=== PATIENT | male | born 1950 | race Caucasian/White ===

== ENCOUNTER 2017-01-16 09:34 | Inpatient (IN) | payer OTHER ==
[~2017-01-16] VITALS: Ht 177.8 cm; Wt 123.0 kg
[2017-01-16] VITALS (44 sets, daily range): BP systolic 101–168; BP diastolic 48–121
--- NOTE | ~2017-01-16 | HC ---
[facility] [place] [address] CONSULTATION Name: LYNN MANNING Room #: 244-P [facility] IN M.R.#: [id number] Admission: 01/16/17 Attend Phys: Mario Daigle MD Discharge: Date of : 48 Report #: [id number] THIS REPORT FOR: //name// CC: Jose Daigle DATE OF SERVICE: 01/16/2017 HISTORY OF PRESENT ILLNESS: A 66-year-old white male previously known to me who was admitted with left-sided weakness, upper extremity greater than lower extremity. He is unable to undergo an MRI scan as he has a prior spinal cord stimulator. He did undergo TPA at [facility] and he has been transferred here for further evaluation. He has been seen by Neurology. CT scan does show a posterior right frontal lobe acute recent area of ischemia. He has weakness to that left side. We are seeing him in rehabilitation medicine consultation. PAST MEDICAL HISTORY: Includes a complex history with exploratory laparotomy, cholecystectomy, open colostomy reversal, 05/2015. History of chronic kidney disease, diabetes mellitus type 2, obesity, obstructive sleep apnea. He did have a prior acute inpatient rehabilitation stay from 06/27/2015 to 07/04/2015. PAST SURGICAL HISTORY: Delineated above. MEDICATIONS: Please see the full medication listing. ALLERGIES: PLAVIX CAUSES ITCHING. SOCIAL HISTORY: , lives with his , house, 2 steps in, can stay on one floor. He was ambulatory without gait aids, would only use a cane outside. is retired and can assist. FAMILY HISTORY: Positive for leukemia, hypertension on mother's side; coronary artery disease on father's side. REVIEW OF SYSTEMS: No current complaints of chest pain, shortness of breath or abdominal discomfort. Denies any swallowing issues. Denies any bowel or bladder problems. He has left upper extremity weakness and numbness, more than left lower extremity. PHYSICAL EXAMINATION: GENERAL: A right-handed 66-year-old white male in no obvious distress. VITAL SIGNS: Temperature 37.3, pulse 75, respirations 12, blood pressure 133/69. The patient is alert, pleasant, oriented. HEENT: Appeared to be benign. NEUROLOGIC: Cranial nerves are grossly intact. Facies are symmetric. No obvious visual field neglect consultation. He has functional range of motion of [address] [address] CONSULTATION Name: LYNN MANNING Room #: 244-P [facility] IN M.R.#: [id number] Admission: 01/16/17 Attend Phys: Mario Daigle MD Discharge: Date of : 48 Report #: [id number] the right upper and right lower extremity without focal weakness. DTRs are trace to 1. In his left upper extremity, he only has a grade trace left shoulder flexion, abduction, adduction, elbow flexion, extension is only a trace to 2-. No movement of the wrist, thumb and fingers. Tone is decreased. Left lower extremity strength appears better, probably a grade 3+/5. DTRs are 1. There is no clonus. Sensation appeared reasonably intact to simultaneous stimulation. He has bilateral knee incisions from prior total knee replacements, which are well healed. Functionally, he had left-sided weakness, moderate assist with standing, he has done some gnue-ve-wnev 3 steps with assist. ASSESSMENT: A 66-year-old right-handed white male with the following problem list: 1. Posterior right frontal lobe cerebrovascular accident. 2. Left upper extremity greater than left lower extremity paresis with left upper extremity, more of a dense paresis. 3. Left hemisensory deficits, although he did reasonably well with simultaneous stimulation. 4. Functional mobility and ADL deficits. 5. Status post colostomy reversal. 6. Chronic kidney disease. 7. Diabetes mellitus type 2. 8. Obesity. 9. Obstructive sleep apnea. PLAN: Therapies are continuing. He is a candidate for an acute in-hospital inpatient rehabilitation stay. From a preadmission screening perspective: 1. Prior level of function is well delineated above. 2. Expect level of improvement would be for the patient to become modified independent with transfers, mobility and ADLs, so that he can hopefully return back to his prior living situation. Would anticipate length of stay of probably at least 7-10 days, potentially longer if needed. 3. Evaluation of the patient's risk for clinical complications. He has the above noted comorbidities. 4. Condition that caused the need for rehabilitation would be the CVA. 5. Treatments needed would include PT and OT 1 and 1-1/2 hours per day each five days a week throughout the duration of the acute inpatient rehabilitation stay. I am uncertain if he warrant speech therapy yet or not. 6. Anticipated discharge destination would be back to the home setting. 7. Anticipated post-discharge treatments would include likely either home healthcare or outpatient depending upon his progress. By: [id number] Rick Vickers MD /ELDER
--- NOTE | ~2017-01-16 | 2DMMODE ---
[facility] [address] [place] [address] 2 D/M-MODE ECHOCARDIOGRAM Name: LYNN MANNING Room #: 248-P ADM IN M.R.#: [id number] Admission: 01/16/17 Attend Phys: Mario Daigle, Discharge: Date of : 48 Date of Service: 01/17/17 [facility] Report #: [id number] THIS REPORT FOR: //name// APPROVED REPORT Study performed: 01/17/2017 14:26:33 EXAM: Comprehensive 2D, Doppler, and color-flow Echocardiogram Patient Location: ICU Room #: 248 Status: routine BSA: 2.39 HR: 97 bpm BP: 133/69 mmHg Other Information Study Quality: Fair/poor Technically limited study due to body habitus, limited mobility. Indications CVA. Hx: CAD, stent Echo Enhancing Agent Indication: Endocardial border delineation Agent(s) / Amount(s) Used: Optison 3 cc 2D Dimensions LVEF(%): 56.04 (>50%) IVSd: 11.56 (7-11mm) LVOT Diam: 21.81 (18-24mm) LVDd: 52.95 mm PWd: 11.00 (7-11mm) LVDs: 37.33 (25-40mm) Aortic Root: 37.07 mm Layton's LVEF: 56.04 % Volumes Left Atrial Volume (Systole) Single Plane 4CH: 51.18 mL Single Plane 2CH: 63.60 mL LA ESV Index: 26.00 mL/m2 Aortic Valve AoV Peak Robles.: 1.47 m/s AO Peak Gr.: 8.69 mmHg LVOT Max P.28 mmHg LVOT Max V: 1.15 m/s [facility] [address] [address] 2 D/M-MODE ECHOCARDIOGRAM Name: NIGELLYNN Room #: 248-P ADM IN M.R.#: [id number] Admission: 01/16/17 Attend Phys: Mario Daigle, Discharge: Date of : 48 Date of Service: 01/17/17 1600 Report #: [id number] Vmax: 2.91 cm2 Mitral Valve E/A Ratio: 1.1 MV Decel. Time: 230.25 ms MV E Max Robles.: 1.19 m/s MV A Robles.: 1.04 m/s MV PHT: 66.77 ms IVRT: 86.51 ms Pulmonary Valve PV Peak Robles.: 1.14 m/s PV Peak Gr.: 5.17 mmHg Tricuspid Valve RAP Estimate: 5.00 mmHg Left Ventricle The left ventricle is normal size. Regional wall motion is grossly normal.Poor endocardial definition.Contrast was utilized Mild concentric left ventricular hypertrophy. Left ventricular systolic function is normal. LVEF is 60%. Moderate diastolic dysfunction is present (pseudonormal filling). Right Ventricle Right ventricle is poorly visualized. Atria The left atrium size is normal. Injection of bubbles was suboptimal and non-conclusive. Right atrium is poorly visualized. Aortic Valve The aortic valve is normal in structure. No aortic regurgitation is present. There is no aortic valvular stenosis. Mitral Valve The mitral valve is normal in structure. There is mitral annular calcification. There is no mitral valve regurgitation noted. No evidence of mitral valve stenosis. Tricuspid Valve Tricuspid valve is poorly visualized. Unable to assess pulmonary pressures. Pulmonic Valve Pulmonic valve is not well visualized. [facility] [address] [place] [address] 2 D/M-MODE ECHOCARDIOGRAM Name: LYNN MNANING Room #: 248-P ADM IN M.R.#: [id number] Admission: 01/16/17 Attend Phys: Mario Daigle, Discharge: Date of : 48 Date of Service: 01/17/17 1600 Report #: [id number] Great Vessels The aortic root is normal in size. Ascending aorta is not well visualized. IVC is normal in size and collapses >50% with inspiration. <Conclusion> Mild concentric left ventricular hypertrophy. LVEF is 60%. Regional wall motion is grossly normal. There is no aortic valvular stenosis. No aortic regurgitation is present. There is no mitral valve regurgitation noted. <ELECTRONICALLY SIGNED> By: Bubba Perera MD, FACC 01/17/17 1600 1600 99 Bubba Perera MD, FAC /INF
[~2017-01-16 09:34] MED LIST: ACIDOPHILUS LA1 EACH PO; AFRIN15 ML NASAL; AFRIN15 ML NS; ALBUTEROL2.5 MG/0.5 INH; ALLOPURINOL 10100 M1 PO; ASPIR 8181 MG PO; ASPIRIN EC81 M1 PO; BLACK CHERRY PO; BYETTA SQ; CALCIUM 600 +1 EAC1 PO; CARAFATE 1 GM TA1 G1 PO; CARVEDILOL25 MG PO; CELEBREX400 MG PO; CINNAMON500 MG PO; CIPRO500 MG PO; CIPROFLOXA400 MG/202 IVPB; CLONIDINE HCL0.1 MG PO; CLONIDINE0.1 PO; COLACE100 MG PO; COLCHICINE0.6 MG PO; COMBIGAN EYE DR10 ML OP; COREG PO; COREG25 MG PO; CRESTOR10 MG PO; DEPO-TESTO100 MG/1 M IM; DIPHENHYDRAM50 MG/M2 IV PUSH; EFFIENT10 MG PO; ENALAPRIL MALEA20 MG PO; ENOXAPARIN30 MG/0.1 SUBQ; FENTANYL PA50 MCG/HR TRANSDERM; FEOSOL325 M1 PO; FISH OIL 1,001000 M1 PO; FISH OIL SOFTG1 EAC2 PO; FISH OIL SOFTG1 EACH PO; FLAGYL500 MG PO; FLONASE 0.05%50 MCG NASAL; GLUCOPHAGE1000 MG PO; GLUCOSE GEL38 GM; GREEN TEA1 EACH PO; HEPARIN 50500 UNIT/5 IV; HEPARIN SO1000 UNIT/ IV PUSH; LASIX 40 MG TAB40 M2 PO; LASIX 40 MG TAB40 MG PO; LEVEMIR SUBQ; LIPID EMULSION; MAGNESIUM400 M1 PO; MEROPENEM500 MG IV; METFORMIN HCL500 MG PO; METOLAZONE 2.52.5 MG PO; METOPROLOL5 MG/5 M2 IV PUSH; MINIPRIN81 MG PO; MSL20MG/ML; MUCINEX600 MG PO; NAPROSYN500 MG PO; NASONEX17 GM NS; NITROSTAT0.4 MG SL; NORCO 5-325 TA1 EACH PO; NORVASC10 MG PO; NORVASC5 MG PO; NOVOLOG100 UNIT/1 SUBQ; OMEGA-31000 MG PO; ONDANSETRON HCL4 M2; PERIDEX15 ML MM; PHENERGAN25 MG/1 M1 IV PUSH; PLAVIX 75 MG TA75 M1 PO; POTASSIUM20 PO; PROTONIX 440 MG/VIA1 IV; PROTONIX40 M1 PO; PROTONIX40 M4 PO; REGLAN 10 MG TA10 MG; REGLAN10 MG PO; TIMOLOL MA0.5 %/5 M2 OPHTHALMIC; TPN ELECTROLYTE20 M1 IV; TRADJENTA5 MG PO; TYLENOL325 MG PO; VASOTEC10 MG PO; VIAGRA100 MG PO; VICTOZA0.6 MG/0.1 SUBQ; WELLBUTRIN SR150 MG PO; XANAX 0.5 MG0.5 MG PO; ZYRTEC10 M2 PO
[2017-01-16 14:46] LABS: CHOLESTEROL 155 mg/dL (<200); HDL CHOLESTEROL 33 mg/dL (>40); LDL CHOLESTEROL 76 mg/dL (<100); TC:HDL 4.7 Ratio (Not establshd); TRIGLYCERIDE 231 mg/dL (<150); VLDL 46 mg/dL (<40)
[2017-01-16 15:49] LABS: TSH 1.633 uIU/mL (0.358-3.740)
[2017-01-17] VITALS (23 sets, daily range): BP systolic 120–203; BP diastolic 58–190
[2017-01-17 03:10] LABS: GLYCOHEMOGLOBIN (HGB A1C) 7.3 % (4.8-5.6)
[2017-01-18] VITALS (7 sets, daily range): BP systolic 109–170; BP diastolic 69–88
[2017-01-18] MEDS ORDERED: FISH OIL 1,0001 EAC5 PO (07:42)
== END 2017-01-18 10:10 | DRG 65 ==
LOC: ICU 09:34
PROVIDERS: Psychiatry & Neurology Neurology
DX: I63.9 Cerebral infarction, unspecified (principal); Z92.82 Status post administration of tPA (rtPA) in a different facility within the last 24 hours prior to admission to current facility; N18.9 Chronic kidney disease, unspecified; G47.33 Obstructive sleep apnea (adult) (pediatric); E11.22 Type 2 diabetes mellitus with diabetic chronic kidney disease; E66.9 Obesity, unspecified; F32.9 Major depressive disorder, single episode, unspecified; G43.909 Migraine, unspecified, not intractable, without status migrainosus; G89.29 Other chronic pain; M54.5 Low back pain; I25.10 Atherosclerotic heart disease of native coronary artery without angina pectoris; F41.9 Anxiety disorder, unspecified; E78.5 Hyperlipidemia, unspecified; Z90.49 Acquired absence of other specified parts of digestive tract; Z93.3 Colostomy status; Z68.38 Body mass index [BMI] 38.0-38.9, adult; Z88.8 Allergy status to other drugs, medicaments and biological substances; Z80.6 Family history of leukemia; Z82.49 Family history of ischemic heart disease and other diseases of the circulatory system; Z79.82 Long term (current) use of aspirin; Z79.899 Other long term (current) drug therapy; I25.2 Old myocardial infarction; Z87.891 Personal history of nicotine dependence
CPT/HCPCS: 10078

== ENCOUNTER 2017-01-18 08:46 | Inpatient (IN) | payer OTHER ==
[~2017-01-18] VITALS: Ht 152.4 cm; Wt 123.8 kg
--- NOTE | ~2017-01-18 | PLAN ---
[facility] [place] [address] REHAB UNIT PLAN OF CARE Name: LYNN MANNING Room #: 511-P ADM IN M.R.#: [id number] Admission: 01/18/17 Attend Phys: Rick Vickers MD Discharge: Date of : 49 Report #: [id number] THIS REPORT FOR: //name// CC: Jose Vickers DATE OF SERVICE: 01/21/2017 SUBJECTIVE: The patient is seen back today in followup. He is doing better. He had an injection of his left elbow that he definitely feels helps his pain. He is moving thee left arm better and now his proximal strength at least a grade 3+/5 and distally it is more of a 4- to 4/5. He does have evidence of pipso-rr-oyduar pinch of the left hand. Temperature is 98.2, pulse 71, respirations 20, blood pressure 159/90. Functionally, he is transferring with contact guard and is ambulating 200 feet contact guard without a device. ASSESSMENT: 1. Posterior right frontal lobe cerebrovascular accident. 2. Left upper extremity greater than left lower extremity paresis with improvement of left arm and left leg movement. 3. Left hemisensory deficits, which appeared to be improving. 4. Functional mobility and ADL deficits. 5. Status post colostomy reversal. 6. Chronic kidney disease. 7. Diabetes mellitus type 2. 8. Obesity. 9. Obstructive sleep apnea. PLAN: The overall plan of care is based on the preadmission screen, post-admission physician evaluation and information garnered from therapy assessments. 1. Estimated length of stay is probably fairly short 7-10 days, pending progress. 2. Medical prognosis is reasonably good. 3. Anticipated interventions includes the interdisciplinary acute inpatient rehabilitation program with PT and OT working with him. I am uncertain if speech therapy is going to be warranted or not. Rehab nursing is assisting regarding medication management, skin care prophylaxis, bowel and bladder issues and nursing education. The [employer] sales consultant physicians are involved. 4. Anticipated functional outcomes would be for the patient can be modified independent potentially without gait aids with independence in mobility and ADLs. 5. Discharge destination will be back home with his . 6. Expected therapy by discipline includes PT and OT 1 and 1-1/2 hours per day each five days a week throughout the duration of the acute inpatient rehabilitation stay. [address] [address] REHAB UNIT PLAN OF CARE Name: LYNN MANNING Room #: 511-P [facility] IN M.R.#: [id number] Admission: 01/18/17 Attend Phys: Rick Vickers MD Discharge: Date of : 49 Report #: [id number] 7. I see that speech therapy is consulted and will probably have them see him at least 1/2-1 hour per day initially, although I am uncertain if they are going to follow throughout his rehabilitation stay. The total for PT and OT and Speech would be at least 3 hours per day, 5 days a week throughout the duration of the acute inpatient rehabilitation stay. <ELECTRONICALLY SIGNED> By: Rick Vickers MD 01/23/17 1006 [id number] Rick Vickers MD /[facility]
--- NOTE | ~2017-01-18 | HC ---
[facility] [place] [address] CONSULTATION Name: LYNN MANNING Room #: 511-P [facility] IN M.R.#: [id number] Admission: 01/18/17 Attend Phys: Rick Vickers MD Discharge: 01/24/17 Date of : 48 Report #: [id number] THIS REPORT FOR: //name// CC: Jose Ahmadi Rick Vickers DATE OF SERVICE: 01/19/2017 NEUROBEHAVIORAL STATUS EXAM ATTENDING PHYSICIAN: Rick Vickers MD PIZZAMAKER: José Luis Cilfton, PhD CLINICAL PRESENTATION: The patient is a 66-year-old male admitted to the [facility] rehabilitation unit for a comprehensive inpatient rehabilitation program to improve functional mobility, activities of daily living and self-care and mental status secondary to a posterior right frontal lobe CVA. He reported to have been at home with his when he noticed the weakness in the left upper extremity. His diagnoses include left hemisensory deficits, functional mobility and activities of daily living deficits, status post colostomy reversible, chronic kidney disease, diabetes mellitus type 2, obesity, and obstructive sleep apnea. The patient had a severe medical event in October 2014, in which he had a colon mass and underwent a resection. The patient became septic and developed rebuilding of the stomach and aspects of his colon. A complete description of his medical condition and history can be found in his medical record. Neuropsychological consultation was requested to provide assistance in the assessment of cognitive and emotional status and to provide recommendations and services. Prior to this most recent event, he was living independently with his in their home. 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 He is a high school graduate. The patient has one son. His is supportive and social support is described as very good. The patient had 2 step siblings and 6 biological siblings. There is no reported family history of mental disorder. TECHNIQUES UTILIZED: Clinical interview, review of medical records, staff consultation and behavioral observation, family interview-, mini mental status exam 2 standard version, calibrated ideational fluency assessment (letter and category fluency) and clock drawing. EXAMINATION FINDINGS: The patient was alert and cooperative with the [address] [address] CONSULTATION Name: LYNN MANNING Room #: 511-P DIS IN M.R.#: [id number] Admission: 01/18/17 Attend Phys: Rick Vickers MD Discharge: 01/24/17 Date of : 49 Report #: [id number] assessment. He accurately described the events surrounding his hospitalization. There is no amnesia suggested. The patient had TPA at the initial admission. Prior to this stroke, he was independent with instrumental and basic activities of daily living. He does not report difficulty with memory, word finding, or sleep. Appetite is improving. The patient does acknowledge subjective anxiety in regard to his medical condition and well being. There is no history reported of alcohol or drug use. His performance on the MMSE 2 brief version, he is in the moderate range of impairment with a raw score 12 of 16 and a T score of 27. Performance on the brief version was at the 1st percentile. Performance on the MMSE 2 standard version was a raw score of 22 and a T score of 29, which is at the 2nd percentile. The patient was 3/3 for initial registration, 4/5 for orientation to time, 3/[address] and 2/3 for immediate recall of 3 items after a brief time delay and distraction. His performance on the standard version of the MMSE 2 indicates 1/5 for serial 7's. He was able to name common objects and provide adequate repetition, auditory comprehension, reading and following a single command, being able to write a sentence and copy a simple geometric design. The patient had some difficulty with clock drawing in regard to placement of the hands at the designated time of 10 after 11. Letter fluency was in the average range with a raw score of 25 and a T score of 50. Category fluency was within normal limits with a raw score 35 and a T score of 43. Total fluency was a raw score of 60, T score of 47 and percentile rank of 38. The patient is showing subtle to mild difficulty with sustained attention and concentration. He reports increased anxiety as a result of having had the stroke. 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 Adjustment disorder with anxious mood. RECOMMENDATIONS: The patient will continue to benefit from educational information in regard to deficits in functioning as a result of the stroke. Compensatory strategies for attention/concentration, planning and problem solving will be of helpful. A more thorough neuropsych assessment will be of benefit upon his return home. Assistance in the development of compensatory [address] [address] CONSULTATION Name: LYNN MANNING Room #: 511-P DIS IN M.R.#: [id number] Admission: 01/18/17 Attend Phys: iRck Vickers MD Discharge: 01/24/17 Date of : 49 Report #: [id number] strategies for inattentiveness and variability in concentration along with immediate recall will be helpful. Thank you very much for allowing me to provide the consultation on this patient. <ELECTRONICALLY SIGNED> By: José Luis Clifton, PhD 01/27/17 1508 1416 1530 José Luis Clifton, PhD /nt
--- NOTE | ~2017-01-18 | H ---
[facility] [place] [address] HISTORY AND PHYSICAL Name: LYNN MANNING Room #: 511-P ADM IN M.R.#: [id number] Admission: 01/18/17 Attend Phys: Rick Vickers MD Discharge: Date of : 49 Report #: [id number] THIS REPORT FOR: //name// CC: Jose Vickers DATE OF SERVICE: 01/18/2017 HISTORY AND PHYSICAL/POST-ADMISSION PHYSICIAN EVALUATION HISTORY OF PRESENT ILLNESS: The patient is a 66-year-old white male previously known to me who was originally admitted to [facility] with left-sided weakness, upper extremity greater than lower extremity. He was unable to undergo an MRI scan as he has a prior spinal cord stimulator. He did undergo TPA at [facility] and was transferred to [place] for further evaluation. He was seen by Neurology. CT scan showed a posterior right frontal lobe acute recent area of ischemia. He has significant weakness of the left side. He has now been admitted for acute in-hospital inpatient rehabilitation. PAST MEDICAL HISTORY: Prior exploratory laparotomy, cholecystectomy, open colostomy reversible 06/14, history of chronic kidney disease, diabetes mellitus type 2, obesity, obstructive sleep apnea. PAST SURGICAL HISTORY: Delineated above. MEDICATIONS: Please see the full medication listing. Each of these was intubated individually reconciled upon the patient's admission and include vitamins, herbal supplements. ALLERGIES: PLAVIX CAUSES CHANGING. SOCIAL HISTORY: , lives with his , house, 2 steps in, can stay on one floor, was premorbidly ambulatory without gait aids, but only used a cane outside. is retired and can assist. FAMILY HISTORY: Positive for leukemia, hypertension on mother's side, coronary artery disease on father's side. REVIEW OF SYSTEMS: No complaints of chest pain, shortness of breath, abdominal discomfort. No swallowing issues. No focal extremity pain complaints. Notes he is moving the left upper extremity a little bit better. PHYSICAL EXAMINATION: GENERAL: A 66-year-old white male in no obvious distress. VITAL SIGNS: Last recorded temperature 97.2, pulse 80, respirations 16, blood [facility] [address] [place] [address] HISTORY AND PHYSICAL Name: LYNN MANNING Room #: 511-P [facility] IN M.R.#: [id number] Admission: 01/18/17 Attend Phys: Rick Vickers MD Discharge: Date of : 48 Report #: [id number] pressure 158/86. NEUROLOGIC: The patient is alert, pleasant. HEENT: Appeared to be benign. NEUROLOGIC: Cranial nerves are grossly intact. Facies are symmetric. I could not detect any obvious visual field neglect to confrontation. CHEST: Sounded clear to auscultation. CARDIOVASCULAR: Regular rate and rhythm. ABDOMEN: Bowel sounds positive, nontender. GENITOURINARY AND RECTAL: Deferred. EXTREMITIES: He has functional range of motion of the right upper and right lower extremity without focal weakness. DTRs are trace to 1. Left upper extremity, he is now able to abduct and forward flex that left arm a grade 3-, elbow flexion and extension at 3-. He does have a very limited movement of that left arm, no movement of the fingers per se. In the left lower extremity; strength is better, probably a 3+/5. DTRs are 1. There is some decreased tone of the left upper extremity, but only mild. He has bilateral knee incisions from prior total knee replacements which are well healed. There is no calf swelling. No distal lower extremity edema. He is needing mod assist with standing and some short distance. Attempts at ambulation, taking a couple of steps. ASSESSMENT: A 66-year-old right-handed white male with the following problem list: 1. Posterior right frontal lobe cerebrovascular accident. 2. Left upper extremity greater than left lower extremity paresis with left upper extremity morbid dense paresis. 3. Left hemisensory deficits. 4. Functional mobility and ADL deficits. 5. Status post colostomy reversible. 6. Chronic kidney disease. 7. Diabetes mellitus type 2. 8. Obesity. 9. Obstructive sleep apnea. PLAN: The patient is admitted for acute in-hospital inpatient rehabilitation. From a postadmission physician evaluation perspective, there are no relevant changes since the preadmission screening. Please see the above review of prior and current medical and functional conditions and comorbidities. Please see the patient's previous and current functional status. As far as risk of complications, see the above noted list of comorbidities. Initial plan of care involves the interdisciplinary acute inpatient rehabilitation program with the goal of maximizing the patient's functional independence, so that he can hopefully return back to his prior living situation. Measurable functional goals would be for the patient to become modified independent with transfers, mobility, ADLs as well as to further assess cognitive communication issues. Prognosis is reasonably good with estimated length of stay probably 2-3 weeks, [facility] [address] [place] [address] HISTORY AND PHYSICAL Name: LYNN MANNING Room #: 511-P ADM IN M.R.#: [id number] Admission: 01/18/17 Attend Phys: Rick Vickers MD Discharge: Date of : 48 Report #: [id number] potentially longer if needed. Potential barriers would include his multiple medical comorbidities and decreased functional status. The patient meets diagnostic criteria for an acute in-hospital inpatient rehabilitation stay. He meets medical necessity criteria, has the tolerance for an acute rehabilitation level and has appropriate discharge goals back to the home setting. <ELECTRONICALLY SIGNED> By: Rick Vickers MD 01/23/17 1006 1459 1530 Rick Vickers MD /[facility]
[~2017-01-18 08:46] MED LIST changes: +FISH OIL 1,0001 EAC5 PO
[2017-01-18 10:30] VITALS: BP 151/84
[2017-01-18 20:29] VITALS: BP 145/77
[2017-01-19 03:50] LABS: HEMATOCRIT 36.2 % (42.0-52.0); HEMOGLOBIN 12.5 gm/dL (14.0-18.0); MCH 30.3 pg (26.0-34.0); MCHC 34.6 g/dL (28.0-37.0); MCV 87.6 fL (80.0-100.0); RBC 4.13 mil/uL (4.50-6.00); WBC 8.2 thou/uL (4.0-11.0)
[2017-01-19 04:05] LABS: CALCIUM 8.7 mg/dL (8.5-10.1); CREATININE 2.5 mg/dL (0.7-1.3); POTASSIUM 3.5 mmol/L (3.5-5.1)
[2017-01-19 08:50] VITALS: BP 154/82
[2017-01-19 16:28] VITALS: BP 145/80
[2017-01-19 19:46] VITALS: BP 142/68
[2017-01-20 04:57] LABS: HEMATOCRIT 34.5 % (42.0-52.0); HEMOGLOBIN 11.7 gm/dL (14.0-18.0); MCH 29.7 pg (26.0-34.0); MCV 87.4 fL (80.0-100.0); PLATELET COUNT 156 thou/uL (150-400); RBC 3.95 mil/uL (4.50-6.00); RDW 14.9 % (10.5-14.5); WBC 8.8 thou/uL (4.0-11.0)
[2017-01-20 05:00] LABS: MANUAL DIFF YES
[2017-01-20 05:07] LABS: CALCIUM 8.6 mg/dL (8.5-10.1); CREATININE 2.5 mg/dL (0.7-1.3); POTASSIUM 3.3 mmol/L (3.5-5.1)
[2017-01-20 06:41] LABS: ABSOLUTE NEUTROPHILS 6.1 thou/uL (1.4-8.2); ANISOCYTOSIS 1+; TOTAL CELL COUNT 100
[2017-01-20 08:30] VITALS: BP 147/73
[2017-01-20 19:49] VITALS: BP 162/71
[2017-01-21 05:22] LABS: ABSOLUTE NEUTROPHILS 6.7 thou/uL (1.4-8.2); EOSINOPHILS 1.5 % (0.0-3.0); HEMATOCRIT 35.2 % (42.0-52.0); LYMPHOCYTES 10.2 % (24.0-44.0); MCH 29.7 pg (26.0-34.0); MCV 87.4 fL (80.0-100.0); MONOCYTES 9.4 % (1.0-8.0); PLATELET COUNT 170 thou/uL (150-400); POLYS 77.9 % (36.0-66.0); RBC 4.03 mil/uL (4.50-6.00); RDW 15.1 % (10.5-14.5); WBC 8.6 thou/uL (4.0-11.0)
[2017-01-21 05:24] LABS: MANUAL DIFF NO
[2017-01-21 05:29] LABS: CALCIUM 8.4 mg/dL (8.5-10.1); CREATININE 2.4 mg/dL (0.7-1.3); POTASSIUM 3.8 mmol/L (3.5-5.1)
[2017-01-21 08:02] VITALS: BP 159/90
[2017-01-21 11:42] VITALS: BP 133/74
[2017-01-21 20:04] VITALS: BP 154/86
[2017-01-22 08:07] VITALS: BP 169/96
[2017-01-22 11:22] VITALS: BP 110/68
[2017-01-22 20:10] VITALS: BP 146/72
[2017-01-23 04:26] LABS: ABSOLUTE NEUTROPHILS 5.2 thou/uL (1.4-8.2); BASOPHILS 0.3 % (0.0-2.0); EOSINOPHILS 3.4 % (0.0-3.0); HEMOGLOBIN 11.7 gm/dL (14.0-18.0); LYMPHOCYTES 15.1 % (24.0-44.0); MCH 30.1 pg (26.0-34.0); MCHC 34.4 g/dL (28.0-37.0); MCV 87.5 fL (80.0-100.0); MONOCYTES 10.4 % (1.0-8.0); PLATELET COUNT 200 thou/uL (150-400); POLYS 70.8 % (36.0-66.0); RBC 3.89 mil/uL (4.50-6.00); WBC 7.4 thou/uL (4.0-11.0)
[2017-01-23 04:27] LABS: MANUAL DIFF NO
[2017-01-23 04:36] LABS: CALCIUM 8.4 mg/dL (8.5-10.1); CREATININE 2.4 mg/dL (0.7-1.3); MAGNESIUM 1.6 mg/dL (1.8-2.4); POTASSIUM 3.6 mmol/L (3.5-5.1)
[2017-01-23 08:03] VITALS: BP 169/89
[2017-01-23] MEDS ORDERED: BENGAY GREASELE57 GM TOP (09:38)
[2017-01-23 11:34] VITALS: BP 169/89
[2017-01-23 21:37] VITALS: BP 147/81
[2017-01-24 05:21] LABS: ABSOLUTE NEUTROPHILS 5.4 thou/uL (1.4-8.2); BASOPHILS 1.2 % (0.0-2.0); EOSINOPHILS 3.3 % (0.0-3.0); HEMATOCRIT 35.4 % (42.0-52.0); HEMOGLOBIN 12.1 gm/dL (14.0-18.0); LYMPHOCYTES 15.1 % (24.0-44.0); MCH 29.7 pg (26.0-34.0); MCHC 34.1 g/dL (28.0-37.0); MCV 87.2 fL (80.0-100.0); MONOCYTES 11.5 % (1.0-8.0); PLATELET COUNT 221 thou/uL (150-400); POLYS 68.9 % (36.0-66.0); RBC 4.06 mil/uL (4.50-6.00); RDW 14.6 % (10.5-14.5); WBC 7.9 thou/uL (4.0-11.0)
[2017-01-24 05:25] LABS: MANUAL DIFF NO
[2017-01-24 05:27] LABS: CALCIUM 8.6 mg/dL (8.5-10.1); CREATININE 2.4 mg/dL (0.7-1.3); MAGNESIUM 1.7 mg/dL (1.8-2.4); POTASSIUM 3.7 mmol/L (3.5-5.1)
[2017-01-24 07:24] VITALS: BP 149/76
[2017-01-24 08:23] VITALS: BP 169/89
[2017-01-24 08:26] VITALS: BP 169/89
== END 2017-01-24 09:20 | disposition home or self-care (01) | DRG 65 ==
LOC: ENTRNSPT 01-24 09:28 → EDTRNSPTSTS 01-24 09:29
PROVIDERS: Family Medicine; Nurse Practitioner; Physical Medicine & Rehabilitation
DX: I63.9 Cerebral infarction, unspecified (principal); G81.94 Hemiplegia, unspecified affecting left nondominant side; Z68.43 Body mass index [BMI] 50.0-59.9, adult; F01.50 Vascular dementia, unspecified severity, without behavioral disturbance, psychotic disturbance, mood disturbance, and anxiety; F43.22 Adjustment disorder with anxiety; N18.9 Chronic kidney disease, unspecified; E11.22 Type 2 diabetes mellitus with diabetic chronic kidney disease; E66.9 Obesity, unspecified; G47.33 Obstructive sleep apnea (adult) (pediatric); Z90.49 Acquired absence of other specified parts of digestive tract; Z93.3 Colostomy status; Z88.8 Allergy status to other drugs, medicaments and biological substances; Z82.49 Family history of ischemic heart disease and other diseases of the circulatory system; Z80.6 Family history of leukemia; M10.9 Gout, unspecified; M25.522 Pain in left elbow
CPT/HCPCS: 10112

== ENCOUNTER 2020-04-06 11:48 | Inpatient (IN) | payer OTHER ==
[~2020-04-06] VITALS: Ht 177.8 cm; Wt 141.1 kg
--- NOTE | ~2020-04-06 | HC ---
[facility] [place] [address] CONSULTATION Name: LYNN MANNING Room #: 450-P ADM IN M.R.#: [id number] Admission: 04/06/20 Attend Phys: Yovani Pina MD Discharge: Date of : 48 Report #: [id number] THIS REPORT FOR: cc: Jose Ahmadi,Jose Calzada,Jovanni Mayers MD ~ DATE OF SERVICE: 04/06/2020 HISTORY OF PRESENT ILLNESS: This is a 69-year-old male patient who was evaluated by me for diplopia, which started this Saturday. It started spontaneously without any trauma. He has developed some headache, but he has a known history of migraine. Migraine is not very frequent and he has not had any migraine for a long time. He was in this hospital in 2017 and I reviewed those records and it looks like at that time, the patient did have a CT scan consistent with stroke. His MRI was not done because he has a stimulator and he was told that he should never have an MRI done. CT angio cannot be done because his creatinine is very high. Headache is longstanding. He saw a neurologist about 20 years ago, he was diagnosed with migraine and other trigger factor was sinus problems according to him. Except for diplopia, he appeared to be at his baseline. REVIEW OF SYSTEMS: Positive for knee problems, stent, colostomy, diabetes, renal insufficiency, heart disease and he had a CVA in 2017 when he was seen by Dr. Mas, who was a neurologist in this hospital. This was his relevant 14-point review of system. PAST MEDICAL HISTORY: Diabetes. FAMILY HISTORY: Unremarkable. SOCIAL HISTORY: He is . His was there, she provided a lot of history. He does not smoke. PHYSICAL EXAMINATION: Indicate he is alert, responsive, able to follow simple and complex command. His speech looks intact. 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 Rest of the cranial nerve examination is unremarkable. Neuromuscular examination indicates an intact position sense in both lower extremities. His strength is relatively preserved. Reflexes appeared to be diminished. Tone looks unremarkable. There is no cerebellar sign. I could not look at the patient's fundus. Cardiac and respiratory examinations appear unremarkable. Blood pressure is somewhat high at 177/73, temperature is 98.2, pulse is 74. LABORATORY DATA: Indicated normal white count and his GFR is only 25. He did [facility] [address] [place] [address] CONSULTATION Name: LYNN MANNING Room #: 450-P [facility] IN M.R.#: [id number] Admission: 04/06/20 Attend Phys: Yovani Pina MD Discharge: Date of : 48 Report #: [id number] not have a CT scan here, but he had a CT scan in the outside hospital as I understand. I will try to locate that. IMPRESSION: Pupil-sparing left third nerve palsy. It is usually because of diabetes. In this circumstance, it is desirable to do a CT angio or an MRA to make sure that the patient does not have an aneurysm. Unfortunately, we cannot do either one of that on him. His GFR is low. I did discuss with him that we can try to do CT angio by hydrating him or by consulting Renal, but he is not interested in that. I will give him a patch. We will repeat the CT in 1-2 days to make sure the stroke does not show up, but it looks like third nerve palsy. I do not think there is any cavernous sinus problem and the headache is just because of migraine, but that is a possibility we will keep in mind, which would not be will easy to exclude either. All of it was discussed with the patient in detail. More than 50 minutes of time was spent taking care of this patient today and majority was spent counseling and coordinating his care and I reviewed extensive records in this patient from his past admission. By: [id number] Jovanni Mobley MD /nt
[~2020-04-06 11:48] MED LIST changes: +BENGAY GREASELE57 GM TOP
--- NOTE | 2020-04-06 14:18 | NUR ---
PT ADMITTED FROM [facility] ER RELATED TO STROKE, DIPLOPIA. CM REVIEWED CHART AND SPOKE WITH CARE TEAM THIS DAY. CM CALLED AND SPOKE WITH PT'S SPOUSE OVER THE PHONE THIS AFTERNOON. SHE INDICATED THAT THEY RESIDE IN A HOUSE WITH 3 STEPS TO ENTER AND NO STEPS PT USES INSIDE. SHE INDICATED THAT PT HAD BEEN USING A ROLLATOR TO ASSIST WITH MOBILITY WHEN HIS BACK WAS HURTING QUILL WINDER. SHE INDICATED HE HAD BEEN INDEPEDNENT WITH ADLS QUILL WINDER. PCP IS DR. CHRISTOPHER MEZA. PT HAD HH IN 2014, HAD BEEN TO 5N HERE IN 2017 AND DONE OP THERAPY AT [facility] OR [facility] BASED ON CHART REVIEW. PT'S SPOUSE INDICATED THAT SHE ANTICPATES HIM RETURNING HOME ONCE MEDICALLY STABLE. THEY ARE RECEPTIVE TO HH IF NEEDED UPON DC. CM TO FOLLOW INDICATED WITH DC PLANNING.
--- NOTE | 2020-04-06 14:42 | NUR ---
ASSUMED PT CARE UPON TRANSFER FROM [facility]. PT DIRECT ADMIT, DR MONTE ADMITTED PT. PT CAME IN WITH LEFT SIDE EYE PAIN, RECEIVED HERE FOR POST STROKE CARE NEURO CONSULT. PT REPORTING PAIN OF 8/10, GIVEN PAIN MEDS PER EMAR. ADMISSION COMPLETED. PT EATING WELL, HYDRATION ENCOURAGED. PT AMBULATORY TO RESTROOM. WEARS A SLEEP APNEA MACHINE AT NIGHT.
[2020-04-06 14:50] LABS: HEMATOCRIT 33.9 % (42.0-52.0); HEMOGLOBIN 11.4 gm/dL (14.0-18.0); MCH 30.9 pg (26.0-34.0); MCHC 33.7 g/dL (28.0-37.0); MCV 91.8 fL (80.0-100.0); RBC 3.69 mil/uL (4.50-6.00); WBC 9.6 thou/uL (4.0-11.0)
[2020-04-06 15:04] LABS: ALBUMIN 3.3 g/dL (3.4-5.0); CALCIUM 9.2 mg/dL (8.5-10.1); CREATININE 2.6 mg/dL (0.7-1.3); POTASSIUM 3.6 mmol/L (3.5-5.1); TOTAL BILIRUBIN 0.3 mg/dL (0.2-1.0)
[2020-04-06] MEDS ORDERED: AMOX TR-K CLV1 EAC4 PO (15:10)
[2020-04-06] MEDS ORDERED: K-DUR 20 MEQ T20 MEQ PO (15:11)
[2020-04-06] MEDS ORDERED: TRESIBA FL100 UNIT/1 SUBLING (15:14)
[2020-04-06] MEDS ORDERED: NOVOLOG FL100 UNIT/M SUBQ (15:16)
[2020-04-06] MEDS ORDERED: DICLOFENAC SOD50 M1 PO (15:17)
[2020-04-06] MEDS ORDERED: BUMETANIDE 1 MG1 M1 PO (15:19)
[2020-04-06] MEDS ORDERED: SINGULAIR 10 MG10 M1 PO (15:20)
[2020-04-06 15:32] VITALS: BP 177/73
[2020-04-06 19:10] VITALS: BP 148/76
[2020-04-07 04:07] LABS: GLYCOHEMOGLOBIN (HGB A1C) 7.3 % (4.8-5.6)
[2020-04-07 05:44] LABS: HEMATOCRIT 33.5 % (42.0-52.0); HEMOGLOBIN 11.3 gm/dL (14.0-18.0); MCHC 33.8 g/dL (28.0-37.0); MCV 91.7 fL (80.0-100.0); RBC 3.65 mil/uL (4.50-6.00); RDW 14.7 % (10.5-14.5); WBC 9.5 thou/uL (4.0-11.0)
[2020-04-07 05:58] LABS: CREATININE 2.6 mg/dL (0.7-1.3); POTASSIUM 3.4 mmol/L (3.5-5.1)
[2020-04-07 07:01] VITALS: BP 160/70
--- NOTE | 2020-04-07 10:38 | NUR ---
discussed during prime time with bedside nurse and . nicole flowers home today no needs.
--- NOTE | 2020-04-07 11:11 | NUR ---
ORDERS FOR EVAL AND TREAT. SPOKE WITH Pt AND SPOUSE. JUST FINISHED WITH O.T. AND HAD NO DIFFICULTY WITH HIS MOBILITY. STATES HE IS MOVING WELL ENOUGH TO GO HOME AND DOESN'T NEED ANOTHER EVAL. Pt DECLINING FORMAL P.T. EVAL BUT DID WELL WITH O.T. AND APPEARS SAFE FOR HOME
[2020-04-07 12:48] VITALS: BP 160/70
--- NOTE | 2020-04-07 13:19 | NUR ---
ASSUMED PT CARE THIS AM. PT VSS, A&OX4. PT COMPLAINING OF PAIN IN LEFT EYE, RESPODED WELL TO MEDICATION GIVEN. NEW ORDER FOR NAUSEA MEDICATION, NAUSEA RESPONDS WELL TO THIS WELL. TOLERATING FOOD, GIVING INSULIN PER EMAR REQUIREMENTS. EYE PATCH BEING SWITCHED EVERY 4 HOURS. PT IN CHAIR, AMBULATES TO THE BATHROOM WITHOUT ISSUE. IV PATENT. HYDRATION ENCOURAGED.
[2020-04-07 15:20] VITALS: BP 167/64
== END 2020-04-07 16:37 | disposition home or self-care (01) | DRG 123 ==
LOC: 4W 11:48
PROVIDERS: ADMIT Hospitalist; ATTEND Internal Medicine
DX: H49.22 Sixth [abducent] nerve palsy, left eye (principal); H49.02 Third [oculomotor] nerve palsy, left eye; N18.9 Chronic kidney disease, unspecified; G89.29 Other chronic pain; M54.9 Dorsalgia, unspecified; E11.22 Type 2 diabetes mellitus with diabetic chronic kidney disease; I12.9 Hypertensive chronic kidney disease with stage 1 through stage 4 chronic kidney disease, or unspecified chronic kidney disease; Z86.73 Personal history of transient ischemic attack (TIA), and cerebral infarction without residual deficits; Z88.8 Allergy status to other drugs, medicaments and biological substances; Z93.3 Colostomy status; Z87.891 Personal history of nicotine dependence; Z79.899 Other long term (current) drug therapy
CPT/HCPCS: 10045; 10047